=== PATIENT | female | born 1955 | race Two or more races ===

== ENCOUNTER 2018-11-04 06:37 | Observation (INO) | payer OTHER ==
--- NOTE | 2018-11-02 17:49 | PREOPHP ---
DATE OF ADMISSION: 11/04/2018 Scheduled for surgery 11/04/2018. 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 Recent imaging studies revealed a s uspicious nodule in the left breast between 2 and 3 o'clock and located 8 cm from the nipple, a 4 mm nodule. Core biopsy revealed infiltrating ductal carcinoma and ductal carcinoma in situ. The lesion is estrogen and progesterone receptor positive and HER-2 negative. She is scheduled to undergo left breast partial mastectomy with preoperative needle localization and left axillary sentinel lymph nod e biopsy. PAST MEDICAL HISTORY: MEDICATIONS: 1. Thyroid. 2. Statin. 3. Fluoxetine for anxiety. ALLERGIES: NONE. PAST SURGICAL HISTORY: Nasal surgery. REVIEW OF SYSTEMS: 3, para 3. PHYSICAL EXAMINATION: VITAL SIGNS: The patient is 5 feet 2 inches, weight 170 pounds. Stable vital signs. HEENT: Within normal limits. LUNGS: Clear. HEART: Regular rate, rhythm. BREASTS: Large and ptotic. There is no palpable mass in either breast. There is no axillary, supra clavicular lymphadenopathy. No primary or secondary signs of tumor. ABDOMEN: Soft. PELVIC AND RECTAL: Per primary care physician. EXTREMITIES: Without edema. NEUROLOGIC: Physiologic. IMPRESSION: Infiltrating ductal carcinoma and ductal carcinoma in situ, left breast. PLAN: I had a full discussion with the patient regarding the nature of her condition and the nature of the surgery, indications, alternatives, options and risks including bleeding, infection, injury to adjacent structures, need for additional surgery or treatment including radiation and chemotherapy a nd/or hormonal blockade based on final pathology, scarring and distortion of the breast and her nippl e, et cetera. All questions have been answered. The patient understands and agrees to proceed. Dictated By: GEE SHEFFIELD/ROMAIN Conf#: [id number] DID#: [id number]
[~2018-11-04] VITALS: Ht 154.9 cm; Wt 84.1 kg
[2018-11-04] VITALS (19 sets, daily range): BP systolic 111–146; BP diastolic 58–79; PULSE 65–74; RESP 9–59; Ht 154.9 cm; Wt 84.1 kg
[~2018-11-04 06:37] MED LIST: CEFAZOLIN 2 GM/50 ML (PMX) 50 ML IVPB ONE; SOD CHLORIDE 0.9% 1,000 ML IV SCH
[2018-11-04] MEDS ORDERED: SEVOFLURANE 15 MIN ONE (07:00)
[2018-11-04] MEDS ORDERED: CEFAZOLIN 2 GM/50 ML (PMX) 50 ML IVPB ONE (08:00)
[2018-11-04] MEDS ORDERED: SOD CHLORIDE 0.9% 1,000 ML IV SCH (08:00)
--- NOTE | 2018-11-04 08:22 | HPN ---
Date/Time of Note Date/Time of Note DATE: 11/04/18 TIME: 08:22 Interval H&P Admission Note Pt. seen H&P reviewed: No system changes GEE ELIZONDO Nov 04, 2018 08:22
[2018-11-04] MEDS ORDERED: ATOR40TA68 PO (10:22)
[2018-11-04] MEDS ORDERED: LEVOTHYROXINE PO (10:22)
[2018-11-04] MEDS ORDERED: FLUO10CA17 PO (10:22)
[2018-11-04] MEDS ORDERED: IBUP-1544 ORAL (10:31)
[2018-11-04] MEDS ORDERED: LEVO100T8 ORAL (10:31)
[2018-11-04] MEDS ORDERED: ATOR10TA65 ORAL (10:31)
--- NOTE | 2018-11-04 10:37 | PREAC ---
Date/Time of Note Date/Time of Note DATE: 11/04/18 TIME: 10:35 Anesthesia Eval and Record Evaluation Time Pre-Procedure Interview DATE: 11/04/18 TIME: 10:35 Age 63 Sex female NPO: 8 hrs Preoperative diagnosis Lt breast mass Planned procedure Lt breast partial mastectomy Past Medical History Past Medical History: Includes Cardio: Dyslipidemia Endo: Hypothyroid GI: Morbid obesity Surgery & Anesthesia Issues No known issue Meds Anticoagulation: No Beta Abram within 24 hr: No Reason Beta Abram not given: Pt. not on B-Abram Reported Medications Ibuprofen* (Ibuprofen*) 800 Mg Tablet, 400 MG ORAL Q6 PRN for PAIN LEVEL 4-6 11/04/18 Atorvastatin (Atorvastatin) 10 Mg Tablet, 1 TAB ORAL DAILY 11/04/18 Levothyroxine Sodium* (Levothyroxine Sodium*) 100 Mcg Tablet, 1 TAB ORAL DAILY 11/04/18 Fluoxetine Hcl* (Fluoxetine Hcl*) 10 Mg Capsule, 10 MG PO DAILY, CAP 11/04/18 Discontinued Reported Medications Atorvastatin* (Atorvastatin*) 40 Mg Tablet, 10 MG PO QHS, #30 TAB 11/04/18 [Levothyroxine] No Conflict Check, PO DAILY 11/04/18 Current Medications Sodium Chloride 1,000 ml @ 75 mls/hr [id number] IV ; Start 11/04/18 at 08:00; Stop 11/04/18 at 21:19 Meds reviewed: Yes Allergies Coded Allergies: No Known Drug Allergies (Verified Allergy, Unknown, 11/04/18) Allergies Reviewed: Yes Labs/Studies Labs Reviewed: Reviewed by anesthesiologist test: N/A Studies: ECG Pre-procedure Exam Last vitals Vital Signs Date Temp Pulse Resp B/P (MAP) Pulse Ox O2 O2 Flow FiO2 Time Delivery Rate 11/04/18 97.6 68 16 123/73 98 Room Air 10:18 (90) Airway: Adequate mouth opening, Adequate thyromental dist Mallampati: Mallampati II Teeth: Normal Lung: Normal Heart: Normal ASA Physical Status ASA physical status: 3 Emergency: None Planned Anesthetic General/MAC: LMA Planned Pain Management Parenteral pain med, Local by surgeon Pre-operative Attestations Prior to commencing anesthesia and surgery, the patient was re-evaluated, there was verification of: *The patient's identity *The results of appropriate recent lab work and preoperative vital signs *The above evaluation not changing prior to induction *Anesthetic plan, risk benefits, alternative and complications discussed with patient/family; questions answered; patient/family understands, accepts and wishes to proceed. WILLIAM DOWNS MD Nov 04, 2018 10:37
[2018-11-04] MEDS ORDERED: FENTAnyl 50 MCG/ML VIAL ONE ×2 (10:39→11:09)
[2018-11-04] MEDS ORDERED: MIDAZOLAM 1 MG/ML 2 ML INJ ONE (10:39)
[2018-11-04] MEDS ORDERED: ISOSULFAN BLUE 1% 5 ML INJ SC ONE (10:52)
[2018-11-04] MEDS ORDERED: LIDOCAINE 1% (MPF) 30 ML INJ ONE (10:53)
[2018-11-04] MEDS ORDERED: LABETALOL HCL 20MG INJ ONE (11:47)
[2018-11-04] MEDS ORDERED: LIDOCAINE 2% (SDV) 5 ML INJ ONE (12:11)
[2018-11-04] MEDS ORDERED: CEFAZOLIN 1 GM INJ ONE (12:11)
[2018-11-04] MEDS ORDERED: PROPOFOL 20 ML ONE (12:11)
[2018-11-04] MEDS ORDERED: ONDANSETRON 4 MG INJ ONE (12:12)
--- NOTE | 2018-11-04 12:26 | PAC ---
Date/Time of Note Date/Time of Note DATE: 11/04/18 TIME: 12:25 Post-Anesthesia Notes Post-Anesthesia Note Last documented vital signs Vital Signs Date Temp Pulse Resp B/P (MAP) Pulse Ox O2 O2 Flow FiO2 Time Delivery Rate 11/04/18 98.0 12:23 11/04/18 68 16 123/73 98 Room Air 10:18 (90) Activity: WNL Respiratory function: WNL Cardiovascular function: WNL Mental status: Baseline Pain reasonably controlled: Yes Hydration appropriate: Yes Nausea/Vomiting absent: Yes Comments BP:148/77, P:89, Spo2:100%, T:98,8 WILLIAM DOWNS MD Nov 04, 2018 12:26
--- NOTE | 2018-11-04 12:26 | SIPON ---
Date/Time of Note Date/Time of Note DATE: 11/04/18 TIME: 12:25 Operative Report Preoperative Diagnosis invasive ductal carcinoma and DCIS left breast Postoperative Diagnosis same Operation/Procedure Performed left breast partial mastectomy with pre-op needle localization and left axillary sentinel lymph node biopsy Surgeon see signature line conference assistant none Anesthesia: general Estimated blood loss: minimal Transfusion Required none Specimen left breast cancer; left axillary lymph nodes Grafts/Implants none Complications none GEE ELIZONDO Nov 04, 2018 12:26
[2018-11-04] MEDS ORDERED: HYDROmorphONE 0.5 MG/0.5 ML SYG SC PRN (12:30)
[2018-11-04] MEDS ORDERED: DIPHENHYDRAMINE 25 MG CAP PO PRN (12:30)
[2018-11-04] MEDS ORDERED: hydrALAzine 20 MG INJ IV PRN (12:30)
[2018-11-04] MEDS ORDERED: MEPERIDINE 25 MG INJ IV PRN (12:30)
[2018-11-04] MEDS ORDERED: ACETAMINOPHEN 325 MG TAB PO PRN (12:30)
[2018-11-04] MEDS ORDERED: ONDANSETRON 4 MG INJ IV PRN ×2 (12:30→21:30)
[2018-11-04] MEDS ORDERED: HYDROmorphONE 1 MG/5 ML IV SYRINGE IV PRN (12:30)
[2018-11-04] MEDS ORDERED: DIPHENHYDRAMINE 50 MG INJ IV PRN (12:30)
[2018-11-04] MEDS ORDERED: METOCLOPRAMIDE 10 MG INJ IV PRN (12:30)
[2018-11-04] MEDS: HYDROmorphONE 1 MG/5 ML IV SYRINGE IV PRN ×2 (12:42→12:56)
[2018-11-04] MEDS: FENTAnyl 50 MCG/ML VIAL IV PRN ×4 (13:03→13:36)
[2018-11-04] MEDS: D5W-0.45 NACL + KCL 20 MEQ 1,000 ML IV SCH ×2 (14:46→23:32)
--- NOTE | 2018-11-04 15:22 | OPR ---
DATE OF OPERATION: 11/04/2018 SURGEON: Gee Tanner MD BIOTECH PRODUCTION SPECIALIST: None. ANESTHESIOLOGIST: Silvestre Miller MD ANESTHESIA: General. PREOPERATIVE DIAGNOSIS: Infiltrating ductal carcinoma and ductal carcinoma in situ, left breast. POSTOPERATIVE DIAGNOSIS: Infiltrating ductal carcinoma and ductal carcinoma in situ, left breast. OPERATION PERFORMED: Left breast partial mastectomy with preoperative needle localization and left axillary sentinel lymph node biopsy. DESCRIPTION OF PROCEDURE: The patient was taken to the operating room and under general anesthesia, with sequential compression device stockings in place, she was prepped and draped in the usual fashion incorporating the left upper extremity into the sterile field. The wire localization was in the periphery of the left upper quadrant. Before prepping the patient, I had injected 3 mL of Lymphazurin 1% at 2 o'clock at the lateral border of the areola. I made an incision in the left axilla achieving hemostasis with cautery and incising the clavipectoral fascia. The blue stained lymphatic and sentinel lymph node was identified and an additional lymph node was excised using the LigaSure electrosurgical device. Specimen was given to pathology who confirmed the presence of lymph node which looked benign. The field was irrigated and the hemostasis was carefully achieved with cautery. A 19 mm round Kareem drain was placed through a separate stab incision inferolateral and placed into the axilla and the drain was sutured to the skin with 2-0 nylon suture. The clavipectoral fascia was closed with interrupted 3-0 Vicryl. The subcutaneous tissues were closed with 3-0 Vicryl and the skin closed with continuous 4-0 Monocryl subcuticular suture. Attention was then directed to the breast upper outer quadrant periphery. A curvilinear incision was made, achieving hemostasis with cautery. Flaps were dissected circumferentially and the wire was brought into the field. The appropriate section of breast tissue was resected using cautery down to the chest wall and oriented with suture markers anterior medial and superior. Specimen was given for specimen radiography and then pathology. The field was irrigated and hemostasis was carefully secured with cautery. The incision was closed with interrupted deep dermal and subcutaneous 3-0 Vicryl sutures followed by continuous 4-0 Monocryl subcuticular suture. Mastisol and 1/2-inch Steri-Strips were applied to both incisions followed by dry sterile dressing. Final sponge and needle counts were correct. The patient tolerated the procedure well and left the operating room in good condition. Dictated By: GEE SHEFFIELD/ROMAIN Conf#: [id number] DID#: [id number] MTDD
[2018-11-04] MEDS: HYDROCODONE/APAP (5/325) TAB PO PRN ×2 (17:49→21:31)
[2018-11-04] MEDS ORDERED: ATORVASTATIN 10 MG TAB PO SCH (21:00)
[2018-11-04] MEDS ORDERED: ACET/BUTAL/CAFF TAB PO PRN (21:30)
[2018-11-05 00:37] VITALS: BP 103/57; PULSE 74; RESP 18
[2018-11-05] MEDS ORDERED: LEVOTHYROXINE 100 MCG TAB PO SCH (06:00)
[2018-11-05 07:29] VITALS: BP 135/67; PULSE 68; RESP 14
[2018-11-05] MEDS: D5W-0.45 NACL + KCL 20 MEQ 1,000 ML IV SCH (08:30)
[2018-11-05] MEDS: HYDROCODONE/APAP (5/325) TAB PO PRN (08:35)
[2018-11-05] MEDS ORDERED: FLUOXETINE 10 MG CAP PO SCH (09:00)
--- NOTE | 2018-11-05 09:51 | PN ---
Date/Time of Note Date/Time of Note DATE: 11/05/18 TIME: 09:49 Assessment/Plan Lines/Catheters IV Catheter Type (from Nrsg): Peripheral IV Subjective 24 Hr Interval Summary Additional Comments AVSS c/o headache but not much surgical site pain. ambulating and tolerating po intake left breast and axilla incisions clean and dry with intact steristrips Drain 25cc serosang Imp. Stable Plan: Discharge Rx [place] 5/325 #24 supplies/instructions/limitations provided/discussed f/u office 11/11 Exam/Review of Systems Vital Signs Vitals Vital Signs Date Temp Pulse Resp B/P (MAP) Pulse Ox O2 O2 Flow FiO2 Time Delivery Rate 11/05/18 98.0 68 14 135/67 98 Room Air 07:29 (89) 11/04/18 3.0 13:45 Intake and Output 11/04/18 11/04/18 11/05/18 1515:00 23:00 07:00 IntakeIntake Total 800 ml 480 ml 1640 ml OutputOutput Total 20 ml 10 ml 15 ml BalanceBalance 780 ml 470 ml 1625 ml GEE ELIZONDO Nov 05, 2018 09:51
== END 2018-11-05 10:50 | disposition home or self-care (01) ==
LOC: SDS 06:37 → REC 12:23 → MS1 13:41
PROVIDERS: ADMIT Surgery; ATTEND Surgery
DX: D05.92 Unspecified type of carcinoma in situ of left breast (principal)
CPT/HCPCS: 19281; 19301; 38500; 88307; 88341; 88342; J0690; J1170; J2175; J2250; J2405; J3010; J3480; Z7500; Z7512; Z7610; 99217; G0378; Q9968